=== PATIENT | female | born 1970 | race Caucasian/White ===

== ENCOUNTER 2017-09-26 08:37 | Observation (INO) | payer OTHER ==
[2017-09-26] VITALS (10 sets, daily range): BP systolic 102–134; BP diastolic 53–82; PULSE 66–77; RESP 16–21; TEMP 97.9–98.8; O2SAT 98–100
[~2017-09-26 08:37] MED LIST: FE T325T PO; MOTI25CH PO
--- NOTE | 2017-09-26 09:15 | PD ---
HPI Chief Complaint: Dizziness Time Seen by Provider: 09:14 Travel History International Travel<30 days: No Contact w/Intl Traveler<30days: No Traveled to known affect area: No History of Present Illness HPI 47-year-old female came to the emergency room with history of lightheadedness that started this morning. She was at work and she felt like she was going to pass out and started getting some tingling in both her upper extremities. Patient says that for past few days she has been feeling lethargic, some shortness of breath and listlessness. She did have a very heavy menstrual period the past 2 weeks. Patient thinks that she is probably anemic after some nausea bleeding. She has had this before where she needed to be transfused. No history of syncopal episode. No history of chest pain or headache. Her vital signs were otherwise stable. She is awake and answering questions appropriately. Patient says that earlier she was soaking a tampon and a pad every hour which has slowed down now. Currently it is once every 3 hours and is not as soaked. [facility] Past Medical History Narrative Medical Rest of her past medical, surgical, social and family history is reviewed from the nursing note. Anemia: Yes Arthritis: Yes (ra) Asthma: No Blood Disorders: No Anxiety: Yes Heart Rhythm Problems: No Cancer: No Cardiovascular Problems: Yes (AFIB) High Cholesterol: No Chemotherapy: No Chest Pain: No Congestive Heart Failure: No COPD: No Cerebrovascular Accident: No Diabetes: No Diminished Hearing: No Endocrine: No Gastrointestinal Disorders: Yes GERD: No Glaucoma: No Genitourinary: Yes Headaches: Yes Hepatitis: No Hiatal Hernia: No Hypertension: No Immune Disorder: No Musculoskeletal: No Neurologic: Yes Psychiatric: Yes Reproductive: No Respiratory: No Immunizations Current: No Migraines: No Myocardial Infarction: No Radiation Therapy: No Seizures: No Sickle Cell Disease: No Sleep Apnea: No Thyroid Disease: No Ulcer: No PNEUMOCCOCAL Vaccine (Year): 2 Tubal Ligation: Yes Past Surgical History Abdominal Surgery: No AICD: No Appendectomy: No Arteriovenous Shunt: No Cardiac Surgery: No Cholecystectomy: No Ear Surgery: No Endocrine Surgery: No Eye Surgery: No Genitourinary Surgery: No Gynecologic Surgery: Yes (tubal ligation) Insulin Pump: No Joint Replacement: No Neurologic Surgery: No Oral Surgery: Yes (teeth removal 2008) Pacemaker: No Thoracic Surgery: No Other Surgery: Yes Social History Alcohol Use: No Tobacco Use: No Substance Use: No Allergies-Medications (Allergen,Severity, Reaction): Coded Allergies: No Known Allergies (Verified Allergy, Unknown, 09/26/17) Comments No known drug allergies. Reported Meds & Prescriptions Reported Meds & Active Scripts Active Tranexamic Acid 650 Mg Tab 1,300 Mg PO TID Take 2 pills three times a day for 5 days Ortho-Novum 1/35 (Norethindrone-Ethinyl Estradiol) 1-35 Mg-Mcg Tab 1 Tab PO DAILY Reported Aspirin 81 Mg Chew 81 Mg CHEW DAILY Metoprolol Tartrate 25 Mg Tab 25 Mg PO BID Narrative Medication List of her home medications reviewed from the nursing note. Review of Systems Except as stated in HPI: all other systems reviewed are Neg Genitourinary: Positive: Menorrhagia Neurologic: Positive: Dizziness Physical Exam Narrative GENERAL: Awake, alert, mild distress SKIN: Focused skin assessment warm/dry. Pale HEAD: Atraumatic. Normocephalic. EYES: Pupils equal and round. No scleral icterus. No injection or drainage. Pallor ENT: No nasal bleeding or discharge. Mucous membranes pink and moist. NECK: Trachea midline. No JVD. CARDIOVASCULAR: Regular rate and rhythm. No murmur appreciated. RESPIRATORY: No accessory muscle use. Clear to auscultation. Breath sounds equal bilaterally. GASTROINTESTINAL: Abdomen soft, non-tender, nondistended. Hepatic and splenic margins not palpable. MUSCULOSKELETAL: No obvious deformities. No clubbing. No cyanosis. No edema. NEUROLOGICAL: Awake and alert. No obvious cranial nerve deficits. Motor grossly within normal limits. Normal speech. PSYCHIATRIC: Appropriate mood and affect; insight and judgment normal. Data Data Last Documented VS Vital Signs Date Time Temp Pulse Resp B/P (MAP) Pulse Ox O2 Delivery O2 Flow Rate FiO2 09/26/17 09:35 99 09/26/17 09:22 65 20 70 20 09/26/17 08:39 97.9 Orders Orders Basic Metabolic Panel (Bmp) (09/26/17 09:24) Complete Blood Count With Diff (09/26/17 09:24) Type And Screen (09/26/17 09:24) Ecg Monitoring (09/26/17 09:24) Iv Access Insert/Monitor (09/26/17 09:24) Oximetry (09/26/17 09:24) Sodium Chloride 0.9% Flush (Ns Flush) (09/26/17 09:30) Sodium Chlor 0.9% 1000 Ml Inj (Ns 1000 M (09/26/17 09:30) Us Pelvis Comp Angle Roll Operator/Non-Preg (09/26/17 ) Red Blood Cells (Rbc) (09/26/17 10:22) Blood Product Administration (09/26/17 10:22) Sodium Chlor 0.9% 250 Ml Inj (Ns 250 Ml (09/26/17 10:30) Consult Gynecology (09/26/17 ) Admit Order (Ed Use Only) (09/26/17 11:23) Labs Laboratory Tests Test 09/26/17 09:50 White Blood Count 4.3 TH/MM3 Red Blood Count 3.08 MIL/MM3 Hemoglobin 6.5 GM/DL Hematocrit 21.0 % Mean Corpuscular Volume 68.2 FL Mean Corpuscular Hemoglobin 21.0 PG Mean Corpuscular Hemoglobin Concent 30.9 % Red Cell Distribution Width 18.2 % Platelet Count 232 TH/MM3 Mean Platelet Volume 9.9 FL Neutrophils (%) (Auto) 70.2 % Lymphocytes (%) (Auto) 16.3 % Monocytes (%) (Auto) 9.2 % Eosinophils (%) (Auto) 2.4 % Basophils (%) (Auto) 1.9 % Neutrophils # (Auto) 3.0 TH/MM3 Lymphocytes # (Auto) 0.7 TH/MM3 Monocytes # (Auto) 0.4 TH/MM3 Eosinophils # (Auto) 0.1 TH/MM3 Basophils # (Auto) 0.1 TH/MM3 CBC Comment DIFF FINAL Differential Comment Blood Urea Nitrogen 8 MG/DL Creatinine 0.67 MG/DL Random Glucose 108 MG/DL Calcium Level 8.5 MG/DL Sodium Level 139 MEQ/L Potassium Level 4.0 MEQ/L Chloride Level 108 MEQ/L Carbon Dioxide Level 24.4 MEQ/L Anion Gap 7 MEQ/L Estimat Glomerular Filtration Rate 94 ML/MIN [facility] Medical Decision Making Medical Screen Exam Complete: Yes Emergency Medical Condition: Yes Medical Record Reviewed: Yes Interpretation(s) Twelve-lead EKG was reviewed by me. Sinus rhythm, normal axis, bradycardia, nonspecific ST-T wave changes. Heart rate of 56 bpm. Differential Diagnosis Symptomatic anemia, endometrial cancer, fibroids Narrative Course 10:57 AM blood test results are back and patient has critical anemia. Have ordered blood transfusion for her. Chemistry appears to be within normal limits. I had ordered an ultrasound of her pelvis since patient has not been worked up for this menorrhagia before. This shows a large mass in her uterus that as per the radiologist could be fibroid or malignant. Patient will require admission. Awaiting for the hospitalist to call back. I will call PUBLICATIONS EDITOR as well. 11:12 AM case was discussed with Dr. Solis from OB hospitalists and she would consult on the patient once the patient is admitted. Critical Care Narrative Aggregate critical care time was 30 minutes. Time to perform other separately billable procedures was not included in the critical care time. My time did not include minutes spent treating any other patients simultaneously or on activities that did not directly contribute to the patient's treatment. The services I provided to this patient were to treat and/or prevent clinically significant deterioration that could result in: Blood transfusion I provided critical care services requiring my management, as noted below: Chart data review, documentation time, medication orders and management, vital sign assessments/reviewing monitor data, ordering and reviewing lab tests, ordering and interpreting/reviewing x-rays and diagnostic studies, care of the patient and discussion of the patient with the admitting physicians. Procedures EKG Prior to Arrival: No Diagnosis Primary Impression: Symptomatic anemia Additional Impressions: Uterine mass Menorrhagia Qualified Codes: N92.1 - Excessive and frequent menstruation with irregular cycle Admitting Information Admitting Physician Requests: Observation Scripts Ferrous Sulfate (Ferrous Sulfate) 325 Mg (65 Mg Iron) Tablet 325 MG PO TIDPC for Nutritional Supplement, #90 TAB 0 Refills Prov: Crystal Gramajo 09/27/17 Tranexamic Acid (Tranexamic Acid) 650 Mg Tab 1300 MG PO TID for Control Heavy Menstruation, #30 TAB 0 Refills Take 2 pills three times a day for 5 days Prov: Sejal Acevedo MD R2 09/26/17 Norethindrone-Ethinyl Estradiol (Ortho-Novum ) 1-35 Mg-Mcg Tab 1 TAB PO DAILY for Control, #1 PACK 0 Refills Prov: Sejal Acevedo MD R2 09/26/17 Adriana Brasher MD Sep 26, 2017 09:14
[2017-09-26] MEDS ORDERED: FERR325T18 PO (09:21)
[2017-09-26] MEDS ORDERED: METO25TA3 PO (09:21)
[2017-09-26] MEDS ORDERED: ASPI-516 CHEW (09:21)
[2017-09-26] MEDS ORDERED: ALEV220T14 PO (09:21)
[2017-09-26] MEDS ORDERED: SODIUM CHLOR 0.9% 1000 ML INJ 1,000 ML IV ONE (09:30)
[2017-09-26] MEDS ORDERED: SODIUM CHLORIDE 0.9% FLUSH 10 ML FLUSH IVF PRN (09:30)
[2017-09-26 10:11] LABS: BASOPHIL # 0.1 TH/MM3 (0-0.2); BASOPHIL % 1.9 % (0.0-2.0); EOSINOPHIL # 0.1 TH/MM3 (0-0.4); EOSINOPHIL % 2.4 % (0.0-4.0); LYMPH % 16.3 % (9.0-44.0); LYMPHOCYTE # 0.7 TH/MM3 (1.0-4.8); MEAN CELL VOLUME 68.2 FL (80.0-100.0); MEAN CORPUSCULAR HGB CONC 30.9 % (32.0-36.0); MONO % 9.2 % (0.0-8.0); NEUT % 70.2 % (16.0-70.0); PLATELET COUNT 232 TH/MM3 (150-450); RED BLOOD COUNT 3.08 MIL/MM3 (4.00-5.30); RED CELL DISTRIBUTION WIDTH 18.2 % (11.6-17.2); WHITE BLOOD COUNT 4.3 TH/MM3 (4.0-11.0)
[2017-09-26 10:14] LABS: HEMO FLAGS DIFF FINAL
[2017-09-26] MEDS ORDERED: SODIUM CHLOR 0.9% 250 ML INJ 250 ML IV ONE (10:30)
--- NOTE | 2017-09-26 10:35 | RADRPT ---
EXAM DATE/TIME: 09/26/2017 09:43 [place] COMPARISON: No previous studies available for comparison. INDICATIONS : Vaginal bleeding. MEDICAL HISTORY : Arthritis. Bulging disc. Headaches. Afib. UTI. Anemia. Anxiety. SURGICAL HISTORY : Total knee replacement, right. ENCOUNTER: Initial ACUITY: 2 weeks PAIN SCORE: 1/10 LOCATION: Bilateral pelvis MEASUREMENTS: UTERUS: 12.3 x 7.8 x 11.7 cm ENDOMETRIAL STRIPE: 2 mm RIGHT OVARY: 2.4 x 2.0 x 1.7 cm LEFT OVARY: 2.6 x 1.8 x 2.3 cm FINDINGS: UTERUS: Anatomic distinction between myometrium and endometrium has been lost. There is a complex mass identi fied in the uterus measuring 10.6 x 8.9 x 7.5 cm. Hypoechoic material is identified in the lower endo metrial canal. RIGHT OVARY: A 1.3 cm cyst is identified in the right ovary. No solid suspicious lesions. LEFT OVARY: Ovary contains no mass or significant cystic lesion. MISCELLANEOUS: No free fluid. CONCLUSION: 1. Complex uterine mass measuring 10.6 cm in greatest dimension. This likely represents a large leiom yoma however a malignant neoplastic endometrial process must also be considered. 2. Hypoechoic material in the lower uterine endometrial canal which may represent blood clot. 3. A 0.3 cm right ovarian cyst. John Whyte MD on September 26, 2017 at 10:26 Board Certified Radiologist. This report was verified electronically.
[2017-09-26 10:40] LABS: BICARBONATE 24.4 MEQ/L (21.0-32.0)
[2017-09-26] MEDS ORDERED: ACETAMINOPHEN 325 MG TAB PO PRN (12:00)
[2017-09-26] MEDS ORDERED: ONDANSETRON HCL 4 MG/2 ML VIAL IVP PRN (12:00)
[2017-09-26] MEDS ORDERED: NALOXONE HCL 0.4 MG/ML AMP IV PUSH PRN (12:00)
--- NOTE | 2017-09-26 15:09 | PD.CONS ---
HPI Chief Complaint abnormal uterine bleed x2 weeks Date Seen: Sep 26, 2017 Time Seen: 14:45 Travel History International Travel<30 Days: No Contact w/Intl Traveler<30Days: No Known Affected Area: No History of Present Illness HPI 47YO w/PMHx anemia, rheumatoid arthritis, anxiety and AFib presents with > 2 weeks of painless vaginal bleeding prior to lightheadedness, weakness and fatigue today. Pt normally has regular periods at 28 day intervals, with first 2 days of heavy bleeding followed by decreased bleeding for 4-6 days. This time , menses began over two weeks ago with heavy bleeding uninterrupted for 2 weeks ; stopped last Monday then started again on Monday with large clots until presentation today. Pt denies pain, cramping, CP, fever, N/V/D, visual changes, and DVT pain; however, pt feels like she gets winded (SOB) with exertion easily , hands tingling, and sxs as described above. Pt believes anemia began after she had her teeth removed in 2008. She wears dentures now. Pt works at [employer] to [employer] and felt like she could not complete normal tasks today due to weakness and fatigue. Para: 3 : 3 Last Menstrual Period: Sep 26, 2017 Miscarriage: 0 : 0 History Past Medical History Narrative Medical anemia anxiety rheumatoid arthritis Atrial fibrillation sinus infections approx 2x year Obstetric History Obstetric History Menarche just before 13 years of age with 3 live children 3x at term menses normally 28 days with first 2 days of heavy bleeding followed by reduced flow BTL 1995 Past Surgical History Narrative Surgical BTL as above Teeth removal 2008 Family History Narrative Family History Father - 8 years ago, HCV and lung cancer (smoker) Mother - living, healthy Social History Alcohol Use: No Tobacco Use: No Substance Abuse: Yes (endorses occasional marijuana use) Allergies-Medications (Allergen,Severity, Reaction): Coded Allergies: No Known Allergies (Verified Allergy, Unknown, 09/26/17) Home Meds Reported Medications Aspirin (Aspirin) 81 Mg Chew, 81 MG CHEW DAILY, TAB 0 Refills 09/26/17 Metoprolol Tartrate (Metoprolol Tartrate) 25 Mg Tab, 25 MG PO BID, #60 TAB 0 Refills 09/26/17 Ferrous Sulfate (Ferrous Sulfate) 325 Mg (65 Mg Iron) Tablet, 325 MG PO BIDPC for Nutritional Supplement, #60 TAB 0 Refills 09/26/17 Discontinued Reported Medications Naproxen Sodium (Aleve Arthritis) 220 Mg Tab, 220 MG PO BID, TAB 09/26/17 Review of Systems General / Constitutional: Chills, No: Fever Eyes: No: Visual changes HENT: Dental Difficulties, Lightheadedness, No: Headaches, Vertigo Cardiovascular: Edema, No: Chest Pain or Discomfort, Palpitations Respiratory: Short of Breath, No: Cough Gastrointestinal: Constipation (iron supplements), No: Nausea, Vomiting, Diarrhea, Abdominal Pain Genitourinary: Menorrhagia, Vaginal Bleeding, No: Urgency, Frequency, Dysuria, Pelvic Pain, Discharge Musculoskeletal: Weakness, Edema (LE edema) Skin: No Rash Neurologic: Weakness, No: Dizziness Psychiatric: Anxiety (from raising her 17 mo old grand daughter) Physical Exam Vital Signs Date Time Temp Pulse Resp B/P (MAP) Pulse Ox O2 Delivery O2 Flow Rate FiO2 09/26/17 13:41 69 20 112/68 (83) 99 09/26/17 12:09 98.3 77 20 116/62 09/26/17 11:40 98.4 70 16 124/63 100 09/26/17 09:35 99 09/26/17 09:22 65 20 122/66 (84) 70 20 125/65 (85) 09/26/17 08:39 97.9 74 16 134/82 (99) 100 Narrative GENERAL: Well-nourished, well-developed patient lying in bed in NAD. SKIN: Warm and dry. No rashes or lesions. Pale. HEAD: Normocephalic and atraumatic. EYES: No scleral icterus. No injection or drainage. EOMI. ENT: No nasal drainage noted. Mucous membranes pink. Airway patent. NECK: Supple, trachea midline. No JVD or lymphadenopathy. CARDIOVASCULAR: Regular rate and rhythm without murmur, gallop, or rub. RESPIRATORY: Breath sounds equal bilaterally in all lung schwartz. No accessory muscle use. No increased WOB. ABDOMEN/GI: Abdomen soft, non-tender, bowel sounds present, no rebound, no guarding. Large suprapubic uterine mass approx 12cm x 10cm appreciated below umbilicus which was non-tender. EXTREMITIES: Moves all spontaneously with normal corrdination. No cyanosis. Bilateral 1+ non-pitting edema below the knees. BACK: Nontender without obvious deformity. No CVA tenderness. NEUROLOGICAL: Awake and alert. Motor and sensory grossly within normal limits. Five out of 5 muscle strength in all muscle groups. Normal speech. Pt was able to ambulate to/from bathroom without difficulty. Data Data Vital Signs Reviewed: Yes Orders Orders Basic Metabolic Panel (Bmp) (09/26/17 09:24) Complete Blood Count With Diff (09/26/17 09:24) Type And Screen (09/26/17 09:24) Ecg Monitoring (09/26/17 09:24) Iv Access Insert/Monitor (09/26/17 09:24) Oximetry (09/26/17 09:24) Sodium Chloride 0.9% Flush (Ns Flush) (09/26/17 09:30) Sodium Chlor 0.9% 1000 Ml Inj (Ns 1000 M (09/26/17 09:30) Us Pelvis Comp Engineering Manager/Non-Preg (09/26/17 ) Red Blood Cells (Rbc) (09/26/17 10:22) Blood Product Administration (09/26/17 10:22) Sodium Chlor 0.9% 250 Ml Inj (Ns 250 Ml (09/26/17 10:30) Consult Gynecology (09/26/17 ) Admit Order (Ed Use Only) (09/26/17 11:23) Place In Observation (09/26/17 ) Vital Signs (Adult) Q4H (09/26/17 11:58) Activity Bed Rest With Brp (09/26/17 11:58) Bedside Glucose FLORENCIA.CSUGAR (09/26/17 11:58) Refining Machine Operator / Telemetry .CONTINUOUS (09/26/17 11:58) Intake + Output FLORENCIA.QSHIFT (09/26/17 11:58) Diet Npo (09/26/17 Dinner) Diet Clear Liquid (09/26/17 Lunch) Sodium Chlor 0.9% 1000 Ml Inj (Ns 1000 M (09/26/17 14:00) Acetaminophen (Tylenol) (09/26/17 12:00) Ondansetron Inj (Zofran Inj) (09/26/17 12:00) Basic Metabolic Panel (Bmp) (09/27/17 06:00) Resp Oxygen Robbi C Titrat 1-4 L (09/26/17 ) Case Management Consult (09/26/17 11:58) Scd Bilateral/Knee High FLORENCIA.BID (09/26/17 11:58) Pharmacologic Contraindication (09/26/17 11:58) Naloxone Inj (Narcan Inj) (09/26/17 12:00) Hgb & Hct (09/26/17 18:01) Hgb & Hct (09/27/17 02:01) Hgb & Hct (09/27/17 10:01) Metoprolol Tartrate (Lopressor) (09/26/17 21:00) (Hub Use Only)Inp Phy Cons/Ref (09/26/17 ) Electrocardiogram (09/26/17 ) Labs Laboratory Tests Test 09/26/17 09:50 White Blood Count 4.3 Red Blood Count 3.08 Hemoglobin 6.5 Hematocrit 21.0 Mean Corpuscular Volume 68.2 Mean Corpuscular Hemoglobin 21.0 Mean Corpuscular Hemoglobin Concent 30.9 Red Cell Distribution Width 18.2 Platelet Count 232 Mean Platelet Volume 9.9 Neutrophils (%) (Auto) 70.2 Lymphocytes (%) (Auto) 16.3 Monocytes (%) (Auto) 9.2 Eosinophils (%) (Auto) 2.4 Basophils (%) (Auto) 1.9 Neutrophils # (Auto) 3.0 Lymphocytes # (Auto) 0.7 Monocytes # (Auto) 0.4 Eosinophils # (Auto) 0.1 Basophils # (Auto) 0.1 CBC Comment DIFF FINAL Differential Comment Blood Urea Nitrogen 8 Creatinine 0.67 Random Glucose 108 Calcium Level 8.5 Sodium Level 139 Potassium Level 4.0 Chloride Level 108 Carbon Dioxide Level 24.4 Anion Gap 7 Estimat Glomerular Filtration Rate 94 MDM Medical Record Reviewed: Yes Narrative Course / MDM 47YO with menorrhagia >2 weeks with Hgb 6.5 on admission with symptomatic anemia requiring RBC transfusion, with 10.7cm leiomyoma found in uterus on US. PLAN: -Hemostasis: --Tranexamic acid 1300mg TID x5 days --Ortho-novum 1 pill daily until JAZZ SINGER appt -JAZZ SINGER as outpt with Dr Grossman Pt discussed with Meme Solis and Kristina Admitting diagnosis: symptomatic anemia, uterine mass Ritesh Mercado MD R1 Sep 26, 2017 15:09
--- NOTE | 2017-09-26 15:51 | HHI.HP ---
HPI Service [facility] Hospitalists Primary Care Physician Zen Carpenter M.D. Admission Diagnosis symptomatic anemia, uterine mass Diagnoses: Chief Complaint: Heavy menstral bleeding Fatigue Lightheadedness with activity Travel History International Travel<30 Days: No Contact w/Intl Traveler <30 Da: No Traveled to Known Affected Are: No History of Present Illness Written by Crystal Gramajo, acting as scribe for Dr. Weber on 09/26/17 at 15: 50. This is a 47yo female with a PMHX significant for atrial fibrillation, iron deficiency anemia and rheumatoid arthritis who presents to [facility] ED with complaints of 2 week history of heavy menstrual bleeding with passage of clots, fatigue and lightheadedness with activity. Patient reports heavy painless bleeding for the past two weeks that stopped last Monday but then resumed again on Monday. She has had heavy cycles all her life. Patient states that today while at work she became more lightheaded and decided to come into the ED for evaluation. She denies any associated chest pain or shortness of breath. She denies any hematuria, hematochezia or melena. She reports she normally takes aspirin as blood thinner for her atrial fibrillation but has not had any in 2 weeks. She was hospitalized in 2009 with similar episode and received a blood transfusion at that time. While in the ED, patient was found to have significant anemia with a hemoglobin of 6.5. An ultrasound was obtained revealing complex uterine mass measuring 10.6 cm likely representing a large leiomyoma however malignant neoplastic endometrial process a consideration. Review of Systems Except as stated in HPI: all other systems reviewed are Neg Past Family Social History Past Medical History RA Anemia Atrial fibrillation Past Surgical History BTL Reported Medications Aleve Arthritis (Naproxen Sodium) 220 Mg Tab 220 Mg PO BID Aspirin 81 Mg Chew 81 Mg CHEW DAILY Metoprolol Tartrate 25 Mg Tab 25 Mg PO BID Ferrous Sulfate 325 Mg (65 Mg Iron) Tablet 325 Mg PO BIDPC Allergies: Coded Allergies: No Known Allergies (Verified Allergy, Unknown, 09/26/17) Active Ordered Medications Current Medications Medications (Trade) Dose Ordered Sig/Teto Route Start Time Stop Time Status Last Admin (NS Flush) 2 ml UNSCH PRN IVF 09/26/17 09:30 Sodium Chloride 250 ml @ 15 mls/hr ONCE ONCE IV 09/26/17 10:30 09/27/17 03:09 09/26/17 11:26 Sodium Chloride 1,000 ml @ 100 mls/hr Q10H IV 09/26/17 14:00 (Tylenol) 650 mg Q4H PRN PO 09/26/17 12:00 (Zofran Inj) 4 mg Q6H PRN IVP 09/26/17 12:00 (Narcan Inj) 0.4 mg UNSCH PRN IV PUSH 09/26/17 12:00 (Lopressor) 25 mg BID PO 09/26/17 21:00 Family History Father, lung cancer, hepatitis with liver cirrhosis Mother, healthy, alive age 70 Social History Patient denies any tobacco use, EtOH use or illicit drug use. Physical Exam Vital Signs Vital Signs Date Time Temp Pulse Resp B/P (MAP) Pulse Ox O2 Delivery O2 Flow Rate FiO2 09/26/17 15:42 98.7 73 21 102/57 (72) 99 09/26/17 13:41 69 20 112/68 (83) 99 09/26/17 12:09 98.3 77 20 116/62 09/26/17 11:40 98.4 70 16 124/63 100 09/26/17 09:35 99 09/26/17 09:22 65 20 122/66 (84) 70 20 125/65 (85) 09/26/17 08:39 97.9 74 16 134/82 (99) 100 Physical Exam GENERAL: This is a well-nourished, well-developed patient, in no apparent distress. SKIN: No rashes, ecchymoses or lesions. Cool and dry. HEAD: Atraumatic. Normocephalic. No temporal or scalp tenderness. EYES: Pupils equal round and reactive. Extraocular motions intact. No scleral icterus. No injection or drainage. ENT: Nose without bleeding, purulent drainage or septal hematoma. Throat without erythema, tonsillar hypertrophy or exudate. Uvula midline. Airway patent. NECK: Trachea midline. No JVD or lymphadenopathy. Supple, nontender, no meningeal signs. CARDIOVASCULAR: Regular rate and rhythm without murmurs, gallops, or rubs. RESPIRATORY: Clear to auscultation. Breath sounds equal bilaterally. No wheezes , rales, or rhonchi. GASTROINTESTINAL: Abdomen soft, non-tender, nondistended. No hepato-splenomegaly , or palpable masses. No guarding. MUSCULOSKELETAL: Extremities without clubbing, cyanosis, or edema. No joint tenderness, effusion, or edema noted. No calf tenderness. Negative Homans sign bilaterally. NEUROLOGICAL: Awake and alert. Cranial nerves II through XII intact. Motor and sensory grossly within normal limits. Five out of 5 muscle strength in all muscle groups. Normal speech. Laboratory Laboratory Tests Test 09/26/17 09:50 White Blood Count 4.3 Red Blood Count 3.08 Hemoglobin 6.5 Hematocrit 21.0 Mean Corpuscular Volume 68.2 Mean Corpuscular Hemoglobin 21.0 Mean Corpuscular Hemoglobin Concent 30.9 Red Cell Distribution Width 18.2 Platelet Count 232 Mean Platelet Volume 9.9 Neutrophils (%) (Auto) 70.2 Lymphocytes (%) (Auto) 16.3 Monocytes (%) (Auto) 9.2 Eosinophils (%) (Auto) 2.4 Basophils (%) (Auto) 1.9 Neutrophils # (Auto) 3.0 Lymphocytes # (Auto) 0.7 Monocytes # (Auto) 0.4 Eosinophils # (Auto) 0.1 Basophils # (Auto) 0.1 CBC Comment DIFF FINAL Differential Comment Blood Urea Nitrogen 8 Creatinine 0.67 Random Glucose 108 Calcium Level 8.5 Sodium Level 139 Potassium Level 4.0 Chloride Level 108 Carbon Dioxide Level 24.4 Anion Gap 7 Estimat Glomerular Filtration Rate 94 Result Diagram: 09/26/17 0950 09/26/17 0950 Imaging Last Impressions Pelvis Ultrasound 09/26/17 0000 Signed Impressions: Service Date/Time: Tuesday, September 26, 2017 09:43 - CONCLUSION: 1. Complex uterine mass measuring 10.6 cm in greatest dimension. This likely represents a large leiomyoma however a malignant neoplastic endometrial process must also be considered. 2. Hypoechoic material in the lower uterine endometrial canal which may represent blood clot. 3. A 0.3 cm right ovarian cyst. MD Dereje Sloan VTE Risk Assessment Caprini VTE Risk Assessment: No/Low Risk (score <= 1) VTE Pharm Contraindication: Active bleeding Caprini Risk Assessment Model Point Value = 1 Point Value = 2 Point Value = 3 Point Value = 5 Age 41-60 Minor surgery BMI > 25 kg/m2 Swollen legs Varicose veins or History of unexplained or recurrent spontaneous Oral contraceptives or hormone replacement Sepsis (< 1 month) Serious lung disease, including pneumonia (< 1 month) Abnormal pulmonary function Acute myocardial infarction Congestive heart failure (< 1 month) History of inflammatory bowel disease Medical patient at bed rest Age 61-74 Arthroscopic surgery Major open surgery (> 45 min) Laparoscopic surgery (> 45 min) Malignancy Confined to bed (> 72 hours) Immobilizing plaster cast Central venous access Age >= 75 History of VTE Family history of VTE Factor V Leiden Prothrombin [id number] Lupus anticoagulant Anticardiolipin antibodies Elevated serum homocysteine Heparin-induced thrombocytopenia Other congenital or acquired thrombophilia Stroke (< 1 month) Elective arthroplasty Hip, pelvis, or leg fracture Acute spinal cord injury (< 1 month) Prophylaxis Regimen Total Risk Factor Score Risk Level Prophylaxis Regimen 0-1 Low Early ambulation 2 Moderate Order ONE of the following: *Sequential Compression Device (SCD) *Heparin 5000 units SQ BID 3-4 Higher Order ONE of the following medications: *Heparin 5000 units SQ TID *Enoxaparin/Lovenox 40 mg SQ daily (WT < 150 kg, CrCl > 30 mL/min) *Enoxaparin/Lovenox 30 mg SQ daily (WT < 150 kg, CrCl > 10-29 mL/min) *Enoxaparin/Lovenox 30 mg SQ BID (WT < 150 kg, CrCl > 30 mL/min) AND/OR *Sequential Compression Device (SCD) 5 or more Highest Order ONE of the following medications: *Heparin 5000 units SQ TID (Preferred with Epidurals) *Enoxaparin/Lovenox 40 mg SQ daily (WT < 150 kg, CrCl > 30 mL/min) *Enoxaparin/Lovenox 30 mg SQ daily (WT < 150 kg, CrCl > 10-29 mL/min) *Enoxaparin/Lovenox 30 mg SQ BID (WT < 150 kg, CrCl > 30 mL/min) AND *Sequential Compression Device (SCD) Assessment and Plan Assessment and Plan 47yo female with a PMHX significant for atrial fibrillation, iron deficiency anemia and rheumatoid arthritis who presents to [facility] ED with complaints of 2 week history of heavy menstrual bleeding with passage of clots, fatigue and lightheadedness with activity found to have a hgb of 6.5 and a large uterine mass. Symptomatic anemia History of iron deficiency anemia -Secondary to menorrhagia -Hemoglobin 6.5 -Continuous cardiac monitoring -Patient receiving 1 unit of packed red blood cells. Second unit ordered. Repeat H&H after completion of transfusion. -Continue to follow H&H closely -fall precautions -Continue on by mouth iron supplementation Menorrhagia Uterine mass -Pelvic ultrasound revealed, blood uterine mass measuring 10.6 cm, likely representing large leiomyoma however malignant neoplastic endometrial process a consideration, images personally reviewed -voice network administrator consulted, appreciate assistance. Will follow up on recommendations. Atrial fibrillation -Rate controlled -Continue on home dose of metoprolol 25mg BID -Hold home dose of aspirin -Continue to monitor heart rate DVT prophylaxis -bilateral SCD/DANIELLE hose -Chemoprophylaxis contraindicated given active bleeding Code Status Full code Discussed Condition With Patient, ED physician, nursing staff This note was transcribed by scribe [Crystal Gramajo ]. I, Dr. Sharyn Weber personally performed the history, physical exam, and medical decision making; and confirmed the accuracy of the information in the transcribed note. Authenticated by Dr. Sharyn Weber on 09/26/17 at 15:50. Crystal Gramajo Sep 26, 2017 15:51 Sharyn Weber MD Sep 26, 2017 17:22
[2017-09-26] MEDS ORDERED: TRAN650T PO (16:07)
[2017-09-26] MEDS ORDERED: ORTH1TAB PO (16:07)
[2017-09-26] MEDS: TRANEXAMIC ACID 650 MG TAB PO SCH (17:26)
--- NOTE | 2017-09-26 19:16 | EKG ---
Date Performed: 09/26/2017 Time Performed: 09:12:21 PTAGE: 47 years EKG: Sinus rhythm POSSIBLE LEFT ATRIAL ENLARGEMENT Nopnspecific atrial abnormality new since prior tracing. BORDERLINE ECG PREVIOUS TRACING : 03/12/2010 16.09.20 DOCTOR: Matty Romero Interpretating Date/Time 09/26/2017 19:15:15
[2017-09-26] MEDS: SODIUM CHLOR 0.9% 1000 ML INJ 1,000 ML IV SCH (20:30)
[2017-09-26] MEDS: METOPROLOL TARTRATE 25 MG TAB PO SCH (20:30)
[2017-09-26 22:04] LABS: HEMATOCRIT 27.3 % (35.0-46.0); REVIEW FLAG FINAL
[2017-09-26] MEDS: [UNRECOGNIZED DRUG - OTHER] PO SCH (22:45)
[2017-09-27 00:03] VITALS: BP 112/57; PULSE 73; RESP 18; TEMP 98.1; O2SAT 99
[2017-09-27] MEDS: TRANEXAMIC ACID 650 MG TAB PO SCH ×3 (00:15→15:34)
[2017-09-27 01:09] VITALS: PULSE 69
[2017-09-27 03:27] VITALS: BP 99/55; PULSE 71; RESP 18; TEMP 98.1; O2SAT 98
[2017-09-27 04:15] LABS: HEMATOCRIT 24.7 % (35.0-46.0); REVIEW FLAG FINAL
[2017-09-27 04:40] LABS: BICARBONATE 25.1 MEQ/L (21.0-32.0); POTASSIUM 3.9 MEQ/L (3.5-5.1)
[2017-09-27] MEDS: SODIUM CHLOR 0.9% 1000 ML INJ 1,000 ML IV SCH ×2 (06:09→10:00)
[2017-09-27 07:40] VITALS: BP 117/59; PULSE 68; RESP 20; TEMP 98.3; O2SAT 98
[2017-09-27] MEDS: METOPROLOL TARTRATE 25 MG TAB PO SCH (08:46)
[2017-09-27] MEDS: [UNRECOGNIZED DRUG - OTHER] PO SCH (08:46)
--- NOTE | 2017-09-27 13:17 | HHI.PR ---
COST CONTROL ANALYST Note Note Subjective: Patient is doing well this morning. She denies chest pain, shortness of breath, or dizziness. She states that the vaginal bleeding is almost resolved such that if she were at home, she would use a panty liner. The only acute concern she has is a headache which she states is most likely because she did not eat anything until this morning and also has not had caffeine which she normally has at 4 AM in the morning before she goes to work. She would like to go home today. Objective: GENERAL: Well-nourished, well-developed patient. No acute distress. SKIN: Warm and dry. No rashes present. Pale appearing skin, moderately improved from previous day HEENT: Normocephalic, atraumatic. No injection or drainage. Extraocular movements intact. CARDIOVASCULAR: Warm and well perfused. Regular rate and rhythm RESPIRATORY: No increased work of breathing. No accessory muscle use. Clear to auscultation bilaterally GASTROINTESTINAL: Abdomen nondistended. Enlarged uterus as previous MUSCULOSKELETAL: No cyanosis or edema. Strength grossly WNL. NEURO: Cranial nerves II through XII grossly intact. No obvious focal neurologic deficits. Moves all extremities well. Normal gait. NEURO/PSYCH: Afocal. Awake, alert, and oriented x3, normal mood and affect. Good eye contact. Good insight and judgment. Normal speech. A/P 47YO with menorrhagia >2 weeks; Symptomatic anemia with Hgb 6.5 requiring RBC transfusion; 10.7cm complex uterine mass which is most likely a leiomyoma on transvaginal US. Received 2 units of PRBC yesterday with H/H improved to 8.5/ 27.9. PLAN: -Continue Tranexamic acid 1300mg TID x5 days -Ortho-novum 1 pill daily until FRET SAW OPERATOR appt -FRET SAW OPERATOR outpatient appointment with Dr Chauncey Muse to discharge home from FRET SAW OPERATOR standpoint Discussed with Sejal Rodas MD R2 Sep 27, 2017 13:17
[2017-09-27 13:59] LABS: HEMATOCRIT 24.9 % (35.0-46.0); REVIEW FLAG FINAL
--- NOTE | 2017-09-27 14:45 | HHI.PR ---
Subjective Remarks Written by Crystal Gramajo, acting as scribe for Dr. Weber on 09/27/17 at 14: 36. Follow up on patient symptomatic anemia. Patient seen and examined. Patient states she feels much better. She's anxious to go home. She denies any complaints of dizziness or lightheadedness. She denies any fever or chills. Denies any chest pain or shortness of breath. Denies any nausea, vomiting or abdominal pain. Objective Vitals Vital Signs Date Time Temp Pulse Resp B/P (MAP) Pulse Ox O2 Delivery O2 Flow Rate FiO2 09/27/17 07:40 98.3 68 20 117/59 (78) 98 09/27/17 03:27 98.1 71 18 99/55 (70) 98 09/27/17 01:09 69 09/27/17 00:03 98.1 73 18 112/57 (75) 99 09/26/17 21:18 98.3 66 18 109/53 (71) 99 09/26/17 16:50 98.8 70 20 110/62 98 09/26/17 16:21 98.7 73 20 102/57 09/26/17 15:42 98.7 73 21 102/57 (72) 99 I/O 09/26/17 09/26/17 09/26/17 09/27/17 09/27/17 09/27/17 07:00 15:00 23:00 07:00 15:00 23:00 Intake Total 2543 ml 1800 ml 650 ml Output Total 0 ml 1 ml Balance 2543 ml 1800 ml 649 ml Intake Oral 700 ml 650 ml IV Total 1000 ml 250 ml Packed Cells 400 ml 850 ml Blood Product IV Normal Saline Flush 1143 ml Output Urine Total 1 ml Stool Total 0 ml # Voids 5 # Sanitary Pads 1 Pads Result Diagram: 09/27/17 1253 09/27/17 0350 Imaging Last Impressions Pelvis Ultrasound 09/26/17 0000 Signed Impressions: Service Date/Time: Tuesday, September 26, 2017 09:43 - CONCLUSION: 1. Complex uterine mass measuring 10.6 cm in greatest dimension. This likely represents a large leiomyoma however a malignant neoplastic endometrial process must also be considered. 2. Hypoechoic material in the lower uterine endometrial canal which may represent blood clot. 3. A 0.3 cm right ovarian cyst. John Whyte MD Objective Remarks GENERAL: This is a well-nourished, well-developed patient, in no apparent distress. Awake and alert. SKIN: Warm and dry. Less pale today. HEAD: Atraumatic. Normocephalic. EYES: Extraocular motions intact. No scleral icterus. No injection or drainage. ENT: Nose without bleeding or purulent drainage. Airway patent. MMM. NECK: Trachea midline. CARDIOVASCULAR: Regular rate and rhythm without murmurs, gallops, or rubs. RESPIRATORY: Clear to auscultation. Breath sounds equal bilaterally. No wheezes , rales, or rhonchi. GASTROINTESTINAL: Abdomen soft, non-tender, nondistended. No hepato-splenomegaly , or palpable masses. No guarding. MUSCULOSKELETAL: Extremities without clubbing, cyanosis, or edema. NEUROLOGICAL: Awake and alert. Able to move all extremities. Motor and sensory function grossly intact. Nonfocal. Normal speech. Procedures None Medications and IVs Current Medications Medications (Trade) Dose Ordered Sig/Teto Route Start Time Stop Time Status Last Admin (NS Flush) 2 ml UNSCH PRN IVF 09/26/17 09:30 Sodium Chloride 1,000 ml @ 100 mls/hr Q10H IV 09/26/17 14:00 09/27/17 06:09 (Tylenol) 650 mg Q4H PRN PO 09/26/17 12:00 (Zofran Inj) 4 mg Q6H PRN IVP 09/26/17 12:00 (Narcan Inj) 0.4 mg UNSCH PRN IV PUSH 09/26/17 12:00 (Lopressor) 25 mg BID PO 09/26/17 21:00 09/27/17 08:46 (Lysteda) 1,300 mg Q8H PO 09/26/17 17:00 09/27/17 08:47 Non-Formulary Medication NONFORM:NOTREL 1/ 35(norethindro... DAILY PO 09/26/17 20:00 09/27/17 08:46 A/P Assessment and Plan 47yo female with a PMHX significant for atrial fibrillation, iron deficiency anemia and rheumatoid arthritis who presents to [facility] ED with complaints of 2 week history of heavy menstrual bleeding with passage of clots, fatigue and lightheadedness with activity found to have a hgb of 6.5 and a large uterine mass. Symptomatic anemia History of iron deficiency anemia -Secondary to menorrhagia -Hemoglobin 6.5. Transfused 2 units packed red blood cells. Hemoglobin improved 8.0 this morning. -Discussed with patient increasing oral iron supplementation to 3 times a day with vitamin C Menorrhagia Uterine mass -Pelvic ultrasound revealed, blood uterine mass measuring 10.6 cm, likely representing large leiomyoma however malignant neoplastic endometrial process a consideration, images personally reviewed -food court team member consulted, appreciate assistance. Started on Tranexamic acid 1300mg TID x5 days and Ortho-novum 1 pill daily until TANK TERMINAL GAUGER appt. Cleared for discharge from TANK TERMINAL GAUGER standpoint. Follow-up as outpatient with Dr. Grossman. Atrial fibrillation -Rate controlled -Continue on home dose of metoprolol 25mg BID -Hold home dose of aspirin -Continue to monitor heart rate DVT prophylaxis -bilateral SCD/DANIELLE hose -Chemoprophylaxis contraindicated given active bleeding Discharge patient to home Condition on discharge: Improved Regular Diet as tolerated Ad Betty activity Rx written: Tranexamic acid 1300mg TID x 5 days, Ortho-novum one pill daily until gynecology appointment Ferrous sulfate 325mg po three times a day Follow-up with primary care physician and Dr. Grossman of gynecology This note was transcribed by scribe [Crystal Gramajo ]. I, Dr. Sharyn Weber personally performed the history, physical exam, and medical decision making; and confirmed the accuracy of the information in the transcribed note. Authenticated by Dr. Sharyn Weber on 09/27/17 at 14:36. Crystal Gramajo Sep 27, 2017 14:45 Sharyn Weber MD Sep 27, 2017 18:05
[2017-09-27] MEDS ORDERED: FERR325T18 PO (14:48)
--- NOTE | 2017-09-27 14:48 | HHI.DCPOC ---
Discharge Care Plan Diagnosis: (1) Iron deficiency anemia (2) Menorrhagia (3) Uterine mass (4) Symptomatic anemia (5) Atrial fibrillation Goals to Promote Your Health * To prevent worsening of your condition and complications * To maintain your health at the optimal level Directions to Meet Your Goals Take your medications as prescribed Follow your dietary instruction Follow activity as directed Keep your appointments as scheduled Take your immunizations and boosters as scheduled If your symptoms worsen call your PCP, if no PCP go to Urgent Care Center or Emergency Room Smoking is Dangerous to Your Health. Avoid second hand smoke Call the 24-hour hour crisis hotline for domestic abuse at Crystal Gramajo Sep 27, 2017 14:48
== END 2017-09-27 16:53 | disposition home or self-care (01) ==
LOC: NEPC 08:37 → NEDA 11:24 → NEPHCDU 13:44
PROVIDERS: ADMIT Hospitalist; ATTEND Hospitalist
DX: D64.9 Anemia, unspecified (principal); N92.0 Excessive and frequent menstruation with regular cycle; D25.9 Leiomyoma of uterus, unspecified; R51 Headache; I48.91 Unspecified atrial fibrillation; N83.201 Unspecified ovarian cyst, right side; M06.9 Rheumatoid arthritis, unspecified; F41.9 Anxiety disorder, unspecified; F12.90 Cannabis use, unspecified, uncomplicated; Z79.899 Other long term (current) drug therapy; Z79.82 Long term (current) use of aspirin; Z96.651 Presence of right artificial knee joint
CPT/HCPCS: 36430; 76856; 80048; 82948; 85014; 85018; 85025; 86850; 86900; 86901; 86920; 93005; 96360; 96361; 99285; G0378; J7030; J7050; P9016